=== PATIENT | female | born 1955 | race Caucasian/White ===

== ENCOUNTER 2017-12-18 07:04 | Day surgery (SDC) | payer OTHER ==
[2017-12-17 10:51] VITALS: BMI 32.5
[2017-12-18] MEDS ORDERED: Fentanyl 100 MCG/2 ML VIAL ONE ×2 (08:57→11:00)
[2017-12-18] MEDS ORDERED: Propofol 500 MG/50 ML VIAL ONE (08:57)
[2017-12-18] MEDS ORDERED: EPINEPHrine 1 MG/ML AMP ONE (09:45)
[2017-12-18] MEDS ORDERED: Promethazine HCl 25 MG/ML VIAL IM/IV PRN (11:13)
[2017-12-18] MEDS ORDERED: Meperidine HCl/PF 25 MG/ML VIAL IV PRN (11:13)
[2017-12-18] MEDS ORDERED: Ondansetron HCl/PF 4 MG/2 ML Vial IVP PRN (11:13)
[2017-12-18] MEDS ORDERED: HYDROmorphone 2 MG/ML VIAL SLOW IVP PRN (11:13)
[2017-12-18] MEDS ORDERED: Meperidine HCl/PF 25 MG/ML VIAL SLOW IVP PRN (11:13)
[2017-12-18] MEDS ORDERED: Ondansetron HCl/PF 4 MG/2 ML Vial ONE ×2 (11:20→14:19)
[2017-12-18] MEDS ORDERED: Promethazine HCl 25 MG/ML VIAL ONE (12:41)
[2017-12-18] MEDS ORDERED: Glycopyrrolate 0.2 MG/ML 5 ML SYRINGE ONE (14:19)
[2017-12-18] MEDS ORDERED: Dexamethasone 20 MG/5 ML VIAL ONE (14:19)
[2017-12-18] MEDS ORDERED: PROPOFOL 200 MG/20 ML VIAL ONE (14:21)
--- NOTE | 2017-12-18 17:10 | EKG ---
Test Reason : PREOP Blood Pressure : / mmHG Vent. Rate : 070 BPM Atrial Rate : 070 BPM P-R Int : 136 ms QRS Dur : 086 ms QT Int : 412 ms P-R-T Axes : 034 015 003 degrees QTc Int : 444 ms Normal sinus rhythm Normal ECG Confirmed by LACEY JORGENSEN ([id number]) on 12/18/2017 5:10:08 PM Referred By: BERT Confirmed By:LACEY JORGENSEN
--- NOTE | 2017-12-19 13:37 | OP ---
PREOPERATIVE DIAGNOSIS: Left vocal cord paralysis. POSTOPERATIVE DIAGNOSIS: Left vocal cord paralysis. PROCEDURES PERFORMED: Microsuspension laryngoscopy with left vocal fold injection using Prolaryn Plu s. PROCEDURE IN DETAIL: After consent was obtained, the patient was identified, brought to the operatin g room and placed on the operating table in supine position. General endotracheal anesthesia was obt ained with a jet ventilating endotracheal tube and larynx was exposed with an operating laryngoscope, suspended from the operative table. Under microscopic visualization, we were able to examine the vo luli cord and the left one was found to be paralyzed. We injected the Prolaryn Plus product in the dunn lcus lateral to the true vocal cord. Thus medializing the cord towards midline. Care was made not t o over inject and compromise the airway. The injector was then removed. Larynx visualized, extra in jection was removed under microscopic visualization and hemostasis was obtained with topical adrenali ne. We then sprayed the larynx with topical lidocaine and awakened the patient, extubated, and taken to recovery room where she remained in stable condition prior to discharge home.
== END 2017-12-18 14:05 | disposition home or self-care (01) ==
LOC: SDC 07:04
PROVIDERS: ATTEND Specialist
PROC: 3E0F8GC Introduction of Other Therapeutic Substance into Respiratory Tract, Via Natural or Artificial Opening Endoscopic (ICD-10-PCS; principal; 2017-12-18)
DX: J38.01 Paralysis of vocal cords and larynx, unilateral (principal); K21.9 Gastro-esophageal reflux disease without esophagitis; E78.00 Pure hypercholesterolemia, unspecified; H91.90 Unspecified hearing loss, unspecified ear; J34.3 Hypertrophy of nasal turbinates; Z79.2 Long term (current) use of antibiotics; Z79.899 Other long term (current) drug therapy
CPT/HCPCS: 36415; 85014; 93005; 93010; 96374; 96375; J0171; J1100; J2405; J2550; J2704; J3010